=== PATIENT | male | born 1955 | race Hispanic/Latino ===

== ENCOUNTER 2022-02-03 11:33 | Emergency (ER) | payer MEDICARE ==
[~2022-02-03] VITALS: Ht 167.6 cm; Wt 113.4 kg
[2022-02-03] MEDS ORDERED: ASPIRIN 325 MG TAB PO ONE (12:45)
[2022-02-03] MEDS ORDERED: DIOVAN160 MG PO (13:06)
[2022-02-03] MEDS ORDERED: K-DUR10 MEQ PO (13:06)
[2022-02-03] MEDS ORDERED: NAPROXEN250 MG PO (13:06)
[2022-02-03] MEDS ORDERED: PANTOPRAZOLE SO40 MG PO (13:06)
[2022-02-03] MEDS ORDERED: AMOXICILLIN500 MG PO (13:06)
[2022-02-03] MEDS ORDERED: HYDROXYZINE HCL25 MG PO (13:06)
[2022-02-03] MEDS ORDERED: BUMETANIDE1 MG PO (13:06)
[2022-02-03] MEDS ORDERED: ALLOPURINOL300 MG PO (13:06)
[2022-02-03] MEDS ORDERED: HYDRALAZINE HCL25 MG PO (13:06)
[2022-02-03] MEDS ORDERED: MAGNESIUM OXID400 MG PO (13:06)
[2022-02-03] MEDS ORDERED: FLONASE ALLERG9.9 ML INH (13:06)
[2022-02-03] MEDS ORDERED: SPIRONOLACTONE25 MG PO (13:06)
[2022-02-03] MEDS ORDERED: ASPIRIN 325 MG TAB ONE (13:12)
[2022-02-03] MEDS ORDERED: BENZONATATE100 MG PO (14:02)
== END 2022-02-03 14:10 | disposition home or self-care (01) ==
LOC: FSED 12:34
DX: R07.89 Other chest pain (principal); U07.1 COVID-19; R05.9 Cough, unspecified; I10 Essential (primary) hypertension; E11.9 Type 2 diabetes mellitus without complications; K21.9 Gastro-esophageal reflux disease without esophagitis; F41.9 Anxiety disorder, unspecified; M10.9 Gout, unspecified
CPT/HCPCS: 71046; 80053; 82553; 84484; 85025; 93005; 99284

== ENCOUNTER 2024-11-24 19:43 | Emergency (ER) | payer MEDICARE ==
[~2024-11-24] VITALS: Ht 167.6 cm; Wt 116.6 kg
[~2024-11-24 19:43] MED LIST: ALLOPURINOL300 MG PO; AMOXICILLIN500 MG PO; BENZONATATE100 MG PO; BUMETANIDE1 MG PO; DIOVAN160 MG PO; FLONASE ALLERG9.9 ML INH; HYDRALAZINE HCL25 MG PO; HYDROXYZINE HCL25 MG PO; K-DUR10 MEQ PO; MAGNESIUM OXID400 MG PO; NAPROXEN250 MG PO; PANTOPRAZOLE SO40 MG PO; SPIRONOLACTONE25 MG PO
[2024-11-24 20:00] VITALS: TEMP 98.3
[2024-11-24] MEDS: HYDRALAZINE HCL 20 MG/ML VIAL IV STA (20:21)
[2024-11-24] MEDS: KETOROLAC TROMETHAMINE 30 MG/ML VIAL IV STA (20:22)
[2024-11-24 22:04] VITALS: PULSE 67; RESP 20
[2024-11-24 22:26] VITALS: BP 140/62; O2SAT 97
== END 2024-11-24 22:30 | disposition home or self-care (01) ==
LOC: FSED 19:48
DX: M25.511 Pain in right shoulder (principal); R07.89 Other chest pain; I10 Essential (primary) hypertension; E11.65 Type 2 diabetes mellitus with hyperglycemia; K21.9 Gastro-esophageal reflux disease without esophagitis; M10.9 Gout, unspecified; F41.9 Anxiety disorder, unspecified; F32.A Depression, unspecified; R94.31 Abnormal electrocardiogram [ECG] [EKG]
CPT/HCPCS: 71046; 73030; 80053; 84484; 85025; 85379; 93005; 99284; J0360; J1885

== ENCOUNTER 2024-12-10 02:28 | Emergency (ER) | payer MEDICARE ==
[~2024-12-10] VITALS: Ht 167.6 cm; Wt 114.3 kg
[2024-12-10 02:31] VITALS: PULSE 54; RESP 16; TEMP 97.6
[2024-12-10] MEDS: KETOROLAC TROMETHAMINE 30 MG/ML VIAL IM ONE (03:03)
[2024-12-10] MEDS: HYDROCODONE/APAP 5MG-325MG TAB PO ONE (03:03)
[2024-12-10] MEDS: ONDANSETRON HCL 4 MG ORAL DISINTEGRATING TAB PO ONE (03:03)
[2024-12-10] MEDS ORDERED: DIPHENHYDRAMINE25 MG PO (03:04)
[2024-12-10] MEDS ORDERED: TYLENOL325 MG PO (03:04)
[2024-12-10] MEDS ORDERED: IBUPROFEN600 MG PO (03:04)
[2024-12-10] MEDS ORDERED: ULTRAM 50MG50 MG PO (03:04)
[2024-12-10 03:10] VITALS: BP 162/72; PULSE 54; RESP 16; TEMP 97.6; O2SAT 98
== END 2024-12-10 03:13 | disposition home or self-care (01) ==
LOC: FSED 02:31
DX: M54.12 Radiculopathy, cervical region (principal); M25.511 Pain in right shoulder; M79.602 Pain in left arm; I10 Essential (primary) hypertension; E11.9 Type 2 diabetes mellitus without complications; E78.5 Hyperlipidemia, unspecified; F41.9 Anxiety disorder, unspecified; F32.A Depression, unspecified; K21.9 Gastro-esophageal reflux disease without esophagitis
CPT/HCPCS: 96372; 99283; J1885; Q0162